=== PATIENT | female | born 1970 | race Two or more races ===

== ENCOUNTER 2019-12-12 13:34 | Emergency (ER) | payer SELFPAY ==
[2019-12-12] MEDS ORDERED: IPRATROPIUM/ALBUTEROL 0.5-2.5 MG/3 ML AMPUL NEB ONE (14:25)
[2019-12-12] MEDS ORDERED: BENZONATATE 100 MG CAPSULE PO ONE (14:25)
[2019-12-12] MEDS ORDERED: METHYLPREDNISOLONE INJ 125 MG/2 ML SDV IM ONE (14:26)
--- NOTE | 2019-12-12 14:28 | ER Document Report ---
ED Respiratory Problem - General Chief Complaint: Shortness Of Breath Stated Complaint: SHORTNESS OF BREATH Time Seen by Provider: 12/12/19 14:16 Primary Care Provider: GEE MAGANA [Primary Care Provider] - Follow up as needed Notes: Patient is a 49-year-old female who presents the emergency department with a chief complaint of a chronic cough for the past 3 weeks. Patient has a history of asthma with chronic bronchitis. Patient states that she is coughing up purulent drainage. Patient states that she has been using her albuterol inhaler, but has had little relief of her symptoms. Patient does not have a [facility] provider. He denies any fever, body aches, or chills. Patient denies any contact with anybody who has tested positive for COVID-19. Patient does not work and states that she has been taking care of her . - Related Data Allergies/Adverse Reactions: No Known Allergies Allergy (Verified 12/12/19 14:55) Past Medical History - Social History Smoking Status: Current Every Day Smoker Family History: Reviewed & Not Pertinent Review of Systems - Review of Systems Notes: REVIEW OF SYSTEMS: CONSTITUTIONAL : Denies recent illness. Denies recent unintentional weight loss. Denies fever, chills, or sweats. EENT: Denies eye, ear, throat, or mouth pain, discharge, or symptoms. Denies nasal or sinus congestion. CARDIOVASCULAR: Denies chest pain. RESPIRATORY: See HPI. GASTROINTESTINAL: Denies nausea, vomiting, and diarrhea. Denies abdominal pain. Denies constipation. GENITOURINARY: Denies difficulty urinating, burning, blood in urine, urgency or frequency. MUSCULOSKELETAL: Denies neck and back pain. Denies joint pain or swelling. SKIN: Denies rash, itchiness, or lesions HEMATOLOGIC : Denies easy bruising or bleeding. LYMPHATIC: Denies swollen, painful, enlarged glands. NEUROLOGICAL: Denies no numbness or tingling denies weakness. Denies headache. Denies altered mental status. Denies alteration in speech. PSYCHIATRIC: Denies stress, anxiety, alteration in sleep patterns, or depression. All other systems reviewed and negative. Physical Exam - Vital signs Vitals: Temp Pulse Resp BP Pulse Ox 98.4 F 81 16 150/94 H 96 12/12/19 14:23 12/12/19 14:23 12/12/19 14:23 12/12/19 14:23 12/12/19 14:23 - Notes Notes: PHYSICAL EXAMINATION: GENERAL: Appears well, healthy, well-nourished, no acute distress. HEAD: Normocephalic, atraumatic. EYES: PERRL, conjunctiva normal, all extraocular movements intact, sclera non icteric ENT: Moist mucous membranes. NECK: Supple, no noticeable swelling, redness, rash. Normal range of motion. LUNGS: Rhonchi breath sounds throughout all lung [place]. CARDIOVASCULAR: S1-S2, regular rate, regular rhythm. Radial pulses 2+, normal. ABDOMEN: Normoactive bowel sounds. Soft, nontender, no guarding, no rebound tenderness, and no masses palpated. EXTREMITIES: Normal strength and range of motion, no pitting or edema. No cyanosis. NEUROLOGICAL: Moves all extremities upon command. Strength 5/5 in all extremities. PSYCH: Normal mood, normal affect. SKIN: Warm, dry. No rash, lesions, ulcerations noted. Normal skin turgor. Course - Re-evaluation Re-evalutation: 12/12/19 15:14 Chest x-ray shows mild prominence of the interstitial markings. Due to patient's symptoms of having cough for the past 3 weeks, we will put the patient on prednisone, Levaquin, and Tessalon Perles. Patient is in agreement with this plan. Patient states that she is breathing better after receiving Tessalon Perles and DuoNeb's. Follow-up precautions were given. Verbal discharge instructions were given to the patient. They verbalized understanding. They are stable for discharge. - Vital Signs Vital signs: Temp Pulse Resp BP Pulse Ox 98.4 F 81 16 150/94 H 96 12/12/19 14:23 12/12/19 14:23 12/12/19 14:23 12/12/19 14:23 12/12/19 14:23 Discharge - Discharge Clinical Impression: Bronchitis Pneumonia Qualifiers: Pneumonia type: due to unspecified organism Laterality: right Lung location: lower lobe of lung Qualified Code(s): J18.9 - Pneumonia, unspecified organism Condition: Stable Disposition: HOME, SELF-CARE Additional Instructions: You have been diagnosed with a pneumonia. It is very important that you take all of your antibiotics until they are gone even if you are feeling better. Please return to the emergency department immediately if you began having worsening shortness of breath, become confused, have worsening pain, pass out, have persistent vomiting that prevents you from being able to drink fluids for more than 12 hours, or have any other symptoms that are worrisome to you. Please follow-up with your primary care doctor in the next 1-2 days. Also take your steroids as prescribed. Prescriptions: Prednisone [Deltasone 20 mg Tablet] 3 tab PO DAILY 5 Days #15 tablet Levofloxacin [Levaquin 750 mg Tablet] 750 mg PO DAILY #5 tablet Benzonatate [Tessalon Perles 100 mg Capsule] 100 mg PO Q8HP PRN #40 capsule PRN Reason: Referrals: LOCALMD,NO [Primary Care Provider] - Follow up as needed
--- NOTE | 2019-12-12 14:50 | RADIOLOGY REPORT (SQ) ---
EXAM DESCRIPTION: CHEST SINGLE VIEW IMAGES COMPLETED DATE/TIME: 12/12/2019 2:39 pm REASON FOR STUDY: cough x3 weeks; hx of bronchitis COMPARISON: None. EXAM PARAMETERS: NUMBER OF VIEWS: One view. TECHNIQUE: Single frontal radiographic view of the chest acquired. RADIATION DOSE: NA LIMITATIONS: None. FINDINGS: LUNGS AND PLEURA: Mild prominence of the interstitial markings in the bilateral lower lob es slightly more so on the right may represent interstitial infiltrates. No pneumothorax or pleural effusion. MEDIASTINUM AND HILAR STRUCTURES: No masses. Contour normal. HEART AND VASCULAR STRUCTURES: Heart normal in size. Normal vasculature. BONES: No acute findings. HARDWARE: None in the chest. OTHER: No other significant finding. IMPRESSION: 1. Mild prominence of the interstitial markings in the lower lung zones may be on the b asis of infiltrates. TECHNICAL DOCUMENTATION: JOB ID: [id number] 2010 [employer]- All Rights Reserved Reading location - IP/workstation name: [email or web address]
[2019-12-12 16:15] VITALS: BP 133/78
== END 2019-12-12 15:36 | disposition home or self-care (01) ==
LOC: ER 13:34
DX: J18.9 Pneumonia, unspecified organism (principal); J45.909 Unspecified asthma, uncomplicated; R05 Cough; Z79.899 Other long term (current) drug therapy; F17.200 Nicotine dependence, unspecified, uncomplicated
CPT/HCPCS: 94640; 99284; 96372; 71045; J2930